=== PATIENT | male | born 1985 | race African-American/Black ===

== ENCOUNTER 2020-04-12 02:55 | Emergency (ER) | payer SELFPAY ==
--- NOTE | 2020-04-12 03:36 | EDM.PDOC ---
ED HPI GENERAL MEDICAL PROBLEM - General Chief Complaint: Genitourinary Problem Stated Complaint: GROIN PROBLEM Time Seen by Provider: 04/12/20 03:06 Source of Information: Reports: Patient History Limitations: Reports: No Limitations - History of Present Illness INITIAL COMMENTS - FREE TEXT/NARRATIVE: Mr. Soto is a most pleasant 35-year-old gentleman who now presents the ED with a complaint of genital herpes. He states that he acquired genital herpes about 5 years ago, and typically has 2 outbreaks a year. His most recent outbreak was discovered yesterday, 04/11/2020. He has an itchy lesion on his penis. He denies pain. No recent fever. Patient states that he has been treated with acyclovir in the past, with good success, and he is requesting a prescription for that at this time. Here in the ED, the patient's initial BP is found to be mildly elevated at 158/99, otherwise, he is hemodynamically stable, afebrile, saturating 100% on room air. Other than the herpetic lesion, the patient denies having a recent fever, chills, sore throat, ear pain, nasal or sinus congestion, cough, dyspnea, chest pain, palpitations, nausea, vomiting, constipation, diarrhea, abdominal pain, urinary symptoms, recent weight gain or weight loss, recent bloody bowel movements or black bowel movements, recent joint aches, headaches, or rashes. The patient does not have a PCP. - Related Data Allergies Allergy/AdvReac Type Severity Reaction Status Date / Time iodine Allergy Vomiting Verified 04/12/20 03:02 shellfish derived Allergy Vomiting Verified 04/12/20 03:02 Home Meds: Home Meds valACYclovir HCl [Valtrex] 1 tab PO Q12H #5 tablet 04/12/20 [Rx] Past Medical History HEENT History: Reports: Glaucoma Musculoskeletal History: Reports: Fracture (left humerus, right hand) - Infectious Disease History Infectious Disease History: Reports: Herpes (genital) - Past Surgical History Musculoskeletal Surgical History: Reports: ORIF (left humerus), Other (See Below) (Right hand pinning) Social & Family History - Tobacco Use Smoking Status *Q: Former Smoker Years of Tobacco use: 4 Packs/Tins Daily: 1.5 Month/Year Tobacco Last Used: Quit 2001 - Alcohol Use Alcohol Use History: Yes Alcohol Use Frequency: Rarely - Recreational Drug Use Recreational Drug Use: Yes Drug Use in Last 12 Months: Yes Recreational Drug Type: Reports: Marijuana/Hashish (smokes near-daily) - Living Situation & Occupation Living situation: Reports: , Alone 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 ED EXAM, RENAL/ - Physical Exam Exam: See Below Exam Limited By: No Limitations General Appearance: Alert, WD/WN, No Apparent Distress (Male) Exam: Circumcised, Other (Single white vesicular lesion on the dorsal aspect of the penis, on the circumcision scar. No surrounding swelling or erythema.) Course - Vital Signs Last Recorded V/S: Last Vital Signs Temp 36.6 C 04/12/20 03:02 Pulse 60 04/12/20 03:02 Resp 17 04/12/20 03:02 BP 158/99 H 04/12/20 03:02 Pulse Ox 100 04/12/20 03:02 - Orders/Labs/Meds Meds: Medications Discontinued Medications Generic Name Dose Route Start Last Admin Trade Name Sunni PRN Reason Stop Dose Admin Acyclovir 800 mg 04/12/20 03:26 Zovirax PO 04/12/20 03:27 ONETIME ONE - Re-Assessments/Exams Free Text/Narrative Re-Assessment/Exam: 04/12/20 03:29 As above, the patient states that he required genital herpes about 5 years ago, and typically gets about 2 outbreaks per year, with his most recent outbreak just yesterday. On examination, the patient has a single vesicular lesion on the dorsal aspect of his penis, on the circumcision scar. It is itchy, not painful, but the patient would like treatment with acyclovir, which he has had in the past. There are number of acyclovir regimens, with the most convenient being 800 mg po TID x 2 days. The patient prefers that one, therefore he will be given his first dose of acyclovir here in the ED, and I will submit a prescription for him to complete the 2-day course. 04/12/20 03:41 Notified by Mili JONES that we do not carry oral acyclovir. 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 That also means that he would not be able to take his second dose of acyclovir at 11:30 this morning, as prescribed. Another option would be to switch the patient to Valtrex. They have 2 protocols; 500 mg BID x 3 days or 1 g Qday x 5 days. The patient prefers the 3- day option, and is aware that Valtrex is probably more expensive than acyclovir. He will get his first dose of Valtrex here in the ED, and I will then submit a prescription to complete a 3-day course. Departure - Departure Time of Disposition: 03:30 Disposition: Home, Self-Care 01 Condition: Good Clinical Impression: HSV-2 infection - Discharge Information *PRESCRIPTION DRUG MONITORING PROGRAM REVIEWED*: Not Applicable *COPY OF PRESCRIPTION DRUG MONITORING REPORT IN PATIENT COOKIE: Not Applicable Prescriptions: Acyclovir 1 tab PO Q8H #5 tablet Referrals: PCP,None [Primary Care Provider] - Additional Instructions: You were seen in the emergency room for a recurrent outbreak of genital herpes. You have been started on the antiviral medicine valacyclovir (Valtrex), and a prescription for valacyclovir has been sent to the [facility], located in the [email or web address]. Take 1 tablet of valacyclovir every 12 hours, starting this evening, 04/12/2020. Finish the entire 3-day prescription. If any other problems, please do not hesitate to return to the ER. Sepsis Event Note (ED) - Evaluation Sepsis Screening Result: No Definite Risk - Focused Exam Vital Signs: Vital Signs Temp Pulse Resp BP Pulse Ox 04/12/20 03:02 36.6 C 60 17 158/99 H 100
[2020-04-12] MEDS ORDERED: valACYclovir 500 MG Tab PO ONE (03:41)
== END 2020-04-12 03:50 | disposition home or self-care (01) ==
LOC: JD.ED 02:55
DX: A60.01 Herpesviral infection of penis (principal); Z88.8 Allergy status to other drugs, medicaments and biological substances; Z91.013 Allergy to seafood; Z87.891 Personal history of nicotine dependence
CPT/HCPCS: 99282; A9270; 99283